=== PATIENT | male | born 2000 | race African-American/Black ===

== ENCOUNTER 2019-07-11 17:42 | Emergency (ER) | payer OTHER ==
[~2019-07-11] VITALS: Ht 188 cm; Wt 112.2 kg
[2019-07-11 17:42] VITALS: BP 138/79
[2019-07-11 18:44] LABS: HEMATOCRIT 42.3 % (42.0-52.0); HEMOGLOBIN 14.7 g/dl (13.5-17.5); MEAN CORPUSCULAR HEMOGLOBIN 31.8 pg (27.0-33.0); MEAN CORPUSCULAR HGB CONC 34.8 g/dl (32.0-36.5); MEAN CORPUSCULAR VOLUME 91.6 fl (80.0-96.0); PLATELET COUNT, AUTOMATED 276 10^3/uL (150-450); RED BLOOD COUNT 4.62 10^6/uL (4.30-6.10); WHITE BLOOD COUNT 5.6 10^3/uL (4.0-10.0)
[2019-07-11 19:10] LABS: AMPHETAMINES LEVEL URINE NEGATIVE (NEGATIVE); BARBITURATES URINE NEGATIVE (NEGATIVE); BENZODIAZEPINES URINE NEGATIVE (NEGATIVE); CANNABINOIDS URINE NEGATIVE (NEGATIVE); COCAINE METABOLITE URINE NEGATIVE (NEGATIVE); METHADONE URINE NEGATIVE (NEGATIVE); OPIATES URINE NEGATIVE (NEGATIVE); PHENCYCLIDINE URINE NEGATIVE (NEGATIVE)
[2019-07-11 19:34] LABS: ACETAMINOPHEN LEVEL < 2.0 UG/ML (10.0-30.0); ALBUMIN 4.6 GM/DL (3.2-5.2); ALT/SGPT 21 U/L (12-78); BILIRUBIN,DIRECT 0.2 MG/DL (0.0-0.2); BILIRUBIN,TOTAL 0.9 MG/DL (0.2-1.0); BLOOD UREA NITROGEN 12 MG/DL (7-18); CALCIUM LEVEL 9.3 MG/DL (8.5-10.1); CARBON DIOXIDE LEVEL 26 MEQ/L (21-32); CHLORIDE LEVEL 107 MEQ/L (98-107); CREATININE FOR GFR 1.18 MG/DL (0.70-1.30); ETHYL ALCOHOL (ETHANOL) < 0.003 % (0.000-0.010); GLOMERULAR FILTRATION RATE > 60.0 (>60); GLUCOSE, FASTING 94 MG/DL (70-100); POTASSIUM SERUM 3.8 MEQ/L (3.5-5.1); SALICYLATE LEVEL < 1.7 MG/DL (5.0-30.0); SODIUM LEVEL 140 MEQ/L (136-145); TOTAL PROTEIN 8.1 GM/DL (6.4-8.2)
== END 2019-07-11 21:02 | disposition home or self-care (01) ==
LOC: M ED 17:42
DX: Z60.9 Problem related to social environment, unspecified (principal)
CPT/HCPCS: 36415; 80048; 80076; 80307; 84443; 85027; 99284; G0480

== ENCOUNTER 2019-08-01 22:30 | Emergency (ER) | payer OTHER ==
[~2019-08-01] VITALS: Ht 185.4 cm; Wt 109.1 kg
[2019-08-01] MEDS ORDERED: HYDR-4571 PO (22:36)
[2019-08-02] MEDS ORDERED: PERCOCET 5MG/325MG TAB PO ONE
[2019-08-02] MEDS ORDERED: PERC5TAB12 PO (01:07)
[2019-08-02] MEDS ORDERED: OXYCODONE/APAP 5MG/325MG(BULK FOR ED) 1 TABLET PO ONE (01:15)
[2019-08-02 01:20] VITALS: BP 121/72
--- NOTE | 2019-08-02 08:19 | REP ---
Right wrist series: Four views. History: Known scaphoid fracture, question perilunate dislocation. No comparison radiographs. Findings: X-rays are taken through overlying nonopaque bandage. There is a transversely oriented nondisplaced fracture through the waist of the navicular bone. There is some associated soft-tissue swelling. There is no evidence of other carpal fracture, intercarpal dislocation, or subluxation. Distal radius and ulna appear to be intact. No metacarpal injury is seen. Impression: Nondisplaced navicular waist fracture. No evidence of more complex carpal injury. Electronically Signed by Mani Mosher MD 08/02/2019 09:38 A
[2019-08-10] MEDS ORDERED: TRAM50TA2 PO (13:23)
== END 2019-08-02 01:22 | disposition home or self-care (01) ==
LOC: M ED 22:30
DX: S52.501A Unspecified fracture of the lower end of right radius, initial encounter for closed fracture (principal); S62.001A Unspecified fracture of navicular [scaphoid] bone of right wrist, initial encounter for closed fracture; W10.8XXA Fall (on) (from) other stairs and steps, initial encounter; Y92.833 Campsite as the place of occurrence of the external cause

== ENCOUNTER 2019-08-12 10:56 | Day surgery (SDC) | payer OTHER ==
[~2019-08-12] VITALS: Ht 185.4 cm; Wt 110.1 kg
[~2019-08-12 10:56] MED LIST: HYDR-4571 PO; LR 1,000 ML IV ONE; PERC5TAB12 PO; TRAM50TA2 PO; ceFAZolin SOD 2 GM in IV 1 EA IV ONE
[2019-08-12] MEDS ORDERED: ROPIvacaine 0.5% 30 ML INJECTION (J2795 PER 1MG) ONE (10:57)
[2019-08-12] MEDS ORDERED: LIDOCAINE 1% MDV 20ML VIAL ONE (10:57)
[2019-08-12] MEDS ORDERED: BUPIVACAINE/EPIN 0.25% 30 ML VIAL As Ordered ONE (11:37)
[2019-08-12] MEDS ORDERED: dexameTHASONE 4 MG/ML 1ML VIAL (J1100) As Ordered ONE (14:52)
[2019-08-12] MEDS ORDERED: GLYCOPYRROLATE INJ 0.2 MG/ML 2 ML VIAL As Ordered ONE (14:52)
[2019-08-12] MEDS ORDERED: MIDAZOLAM INJ 2 MG/2 ML VIAL (J2250) As Ordered ONE (14:52)
[2019-08-12] MEDS ORDERED: LIDOCAINE 2% INJ 100 MG/5 ML SDV (FOR ANES.) As Ordered ONE (14:52)
[2019-08-12] MEDS ORDERED: PROPOFOL 200 MG/20 ML VIAL As Ordered ONE (14:52)
[2019-08-12] MEDS ORDERED: ONDANSETRON 4MG/2ML VIAL (J2405) As Ordered ONE ×2 (14:52→15:34)
[2019-08-12] MEDS ORDERED: fentaNYL 100 MCG/2 ML INJECTION (J3010) As Ordered ONE ×2 (14:52→15:34)
[2019-08-12] MEDS ORDERED: KETOROLAC 60 MG/2 ML VIAL (J1885) As Ordered ONE (14:52)
[2019-08-12] MEDS ORDERED: HYDROmorphone HCL 2 MG/ML 1ML VIAL (J1170) As Ordered ONE ×2 (15:19→15:37)
[2019-08-12] MEDS ORDERED: MORPHINE 10 MG/ML 1ML VIAL (J2270) As Ordered ONE (15:34)
[2019-08-12] MEDS ORDERED: PERCOCET 5MG/325MG TAB As Ordered ONE (15:34)
[2019-08-12] MEDS ORDERED: METOCLOPRAMIDE INJ 10MG/2ML VIAL (J2765) As Ordered ONE (15:34)
[2019-08-12] MEDS: MORPHINE 10 MG/ML 1ML VIAL (J2270) IV PRN ×3 (15:35→15:55)
--- NOTE | 2019-08-12 15:48 | REP ---
Right wrist series: 33 views. History: Wrist fracture. Intraoperative imaging. 95 seconds of fluoroscopy time is reported. Findings: A sequence of 33 last image hold fluoroscopically obtained spot radiographs of the left wrist document operative fixation of navicular waist fracture. Electronically Signed by Mani Mosher MD 08/12/2019 04:03 P
[2019-08-12] MEDS ORDERED: ACETAMINOPHEN TAB 650MG DOSE (2X325MG) PO PRN (16:15)
[2019-08-12] MEDS ORDERED: ONDANSETRON 4MG/2ML VIAL (J2405) IM PRN (16:15)
[2019-08-12] MEDS ORDERED: NS 1,000 ML IV SCH (16:15)
[2019-08-12] MEDS ORDERED: LR 1,000 ML IV SCH (16:15)
[2019-08-12] MEDS ORDERED: FLEET ENEMA PR PRN (16:15)
[2019-08-12] MEDS ORDERED: ONDANSETRON 4MG/2ML VIAL (J2405) IV PRN (16:15)
[2019-08-12] MEDS ORDERED: PERCOCET 5MG/325MG TAB PO PRN (16:15)
[2019-08-12] MEDS ORDERED: oxyCODONE 5MG TAB PO PRN (16:15)
[2019-08-12] MEDS ORDERED: fentaNYL 100 MCG/2 ML INJECTION (J3010) IV PRN (16:15)
[2019-08-12] MEDS ORDERED: METOCLOPRAMIDE INJ 10MG/2ML VIAL (J2765) IV PRN (16:15)
--- NOTE | 2019-08-12 16:25 | RO ---
DATE OF PROCEDURE: 08/12/2019 PREOPERATIVE DIAGNOSIS: Right scaphoid fracture and distal radius fracture. POSTOPERATIVE DIAGNOSIS: Right scaphoid fracture and distal radius fracture. PROCEDURE: Open reduction, internal fixation of right scaphoid and open reduction internal fixation of right distal radius fracture, articular. SURGEON: Richardson Davis MD [employer]: TORI Leos who was essential for reduction during instrumental portions of the procedure. ANESTHESIA: General. TOURNIQUET TIME: 47 minutes. ANTIBIOTICS: 2 grams of Ancef. ESTIMATED BLOOD LOSS: Minimal. COMPLICATIONS: None. INDICATION: This is a pleasant 19-year-old male who suffered a right distal radius and scaphoid fracture. I discussed with the patient that the increased change of healing with putting internal fixation across the scaphoid which is a notoriously difficult bone to heal and while we are there we pin his distal radius to prevent any sort of displacement. The patient expressed understanding and agreed with this plan. All risks and benefits including, but not limited to infection, malunon, nonunion and damage to surrounding structures were discussed. DESCRIPTION OF PROCEDURE: Patient was taken back to the OR, supine on the operating table and underwent general anesthesia, at which point a time-out was taken confirming site, side and surgery. We injected 20 mL of 0.25% Marcaine with epinephrine overlying the incision on the dorsal aspect of the wrist. Once this was done we prepped and draped the hand in the usual fashion. We then had a second time-out confirming site, side and surgery. Once agreed, we made a longitudinal incision over the dorsum of the wrist overlying Raf's tubercle. We then sharply dissected through subcutaneous tissue, careful to identify any sensory nerve branches. We then identified extensor pollicis longus (EPL) and released it from its sheath and used that area of undermine under the extensor compartment, careful to separate it from the wrist capsule. We then did a T-capsulotomy over the scaphoid careful to leave a cuff on the distal radius. At which point, we identified the scaphoid and found the fracture. We were able to see the dorsal cortex of the fracture which was adequately reduced. We then used a 0.45 mm K-wire to pin the scaphoid along the dorsal cortex. We confirmed this on mini C-Arm in AP and lateral and scaphoid views. We were happy with the placement of this and we overdrilled the near cortex, careful not to extend through to the contralateral side. Prior to this we had measured a 30. We took of 6 mm and used a 24 mm Acumed mini screw. Once we did that, then after drilling the path of the fracture we used the cortical drill over the head of the screw. We then entered the screw making sure it was buried on the near cortex and was not protruding distally on x-ray. We were very happy with the placement of the screw. On our final films we did notice that there was a volar gapping of the fracture, however, looking at dorsal aspect it was compressed at that point. Decision made was to progress on with the procedure to pin the distal radius. At that point we used a 1.65 mm K-wire went through the radial styloid to the ulnar aspect of the radial shaft. We then cut and bent that wire, confirmed on AP and lateral with the mini C-Arm at which point we were happy with the reduction of the scaphoid and the fixation of the distal radius. We irrigated the wound thoroughly, closed the wrist capsule with #4-0 FiberWire, used #3-0 Vicryl to suture back into place the fourth compartment leaving EPL free in the subcutaneous tissue. We then closed subcutaneous tissues with #3-0 Vicryl and #3-0 Monocryl with Mastisol and Steri-Strips to the skin. We then splinted the patient with gauze, Webril and plaster and Willy. Tourniquet was let down at approximately 47 minutes. Patient was extubated and taken to PACU in stable condition. The patient is having pain in PACU so anesthesia was considering placing a posterior peripheral nerve block. He will be kept overnight as he has severe sleep apnea for monitoring and hopefully discharged early next morning. POSTOPERATIVE PLAN: Patient will be nonweightbearing with right upper extremity. We will see him back in 2 weeks for a clinical recheck, at which point we will place him into a thumb spica cast. He will be in that cast for an additional 6 weeks, so at 8 weeks postop we will see him back, release him from the cast and get a CT scan at that time to evaluate healing. If there appears to be a large fracture gap, we may consider coming back for bone grafting procedure while leaving the screw in place. If it is well healed, we will likely release him to full activity at that point. Will convert him at least over to a thumb spica splint and then consider releasing him a month afterwards.
[2019-08-12 17:30] VITALS: BP 136/80
[2019-08-12 18:00] VITALS: BP 134/80
[2019-08-12 18:30] VITALS: BP 130/81
[2019-08-12 19:30] VITALS: BP 131/80
[2019-08-12 20:30] VITALS: BP 138/79
[2019-08-12] MEDS: ceFAZolin SOD 1 GM in D5W MINI-BAG PLUS 50 ML IV SCH (22:29)
[2019-08-13 02:03] VITALS: BP 119/54
[2019-08-13] MEDS: oxyCODONE 5MG TAB PO PRN ×2 (05:05→10:20)
[2019-08-13] MEDS: ceFAZolin SOD 1 GM in D5W MINI-BAG PLUS 50 ML IV SCH (06:14)
[2019-08-13 06:16] VITALS: BP 126/70
[2019-08-13] MEDS: MORPHINE 4 MG/ML 1ML VIAL/SYRINGE (J2270) IV PRN ×2 (06:20→11:03)
[2019-08-13] MEDS ORDERED: MORPHINE 15 MG SA TAB PO ONE (13:00)
== END 2019-08-13 12:33 | disposition home or self-care (01) ==
LOC: M SDC 10:56 → M MS5PR 17:30 → M SDC 08-13 12:33
PROVIDERS: ATTEND Orthopaedic Surgery Hand Surgery
DX: S62.001A Unspecified fracture of navicular [scaphoid] bone of right wrist, initial encounter for closed fracture (principal); S52.501A Unspecified fracture of the lower end of right radius, initial encounter for closed fracture; S60.511A Abrasion of right hand, initial encounter; R06.83 Snoring; G47.33 Obstructive sleep apnea (adult) (pediatric); W19.XXXA Unspecified fall, initial encounter; Y93.9 Activity, unspecified; Y92.9 Unspecified place or not applicable; Y99.9 Unspecified external cause status
CPT/HCPCS: 25607; 25628; 76000; 96360; 96374; 96375; 96376; C1713; J0690; J1100; J1170; J1885; J2250; J2270; J2405; J2795

== ENCOUNTER → 2019-10-12 | Outpatient (CLI) | payer OTHER ==
[~2019-10-12] MED LIST changes: -LR 1,000 ML IV ONE; -ceFAZolin SOD 2 GM in IV 1 EA IV ONE
--- NOTE | 2019-10-12 12:17 | REP ---
CT RIGHT WRIST WITHOUT CONTRAST: HISTORY: Displaced fracture middle third navicular bone right wrist. Comparison right wrist radiographs August 02, 2019. August 12, 2019 radiographs document operative therapy for the navicular fracture. TECHNIQUE: Helical scanning is acquired. 2 mm axial images are generated. Coronal and sagittal MPR images are generated and reviewed. Study is acquired through overlying cast material. FINDINGS: There is a metallic screw placed longitudinally across the navicular waist fracture. This metallic screw protrudes 2-3 mm from the cortical surface of the proximal pole of the navicular bone. It extends into the navicular lunate articulation at this level. The distal end of the screw appears subcortical. There is subtle pattern of increased relative density in the proximal pole of the navicula. The fracture is well aligned and the fracture lucency is only visible at the palmar cortex level of the navicular waist. Otherwise, it appears to be united. There is a pin tract through the distal radius obliquely from radial styloid to distal metaphysis. No other carpal fracture is seen. No malalignment. IMPRESSION: Status post pinning for navicular waist fracture. The metallic screw in the navicula protrudes into the navicular lunate articulation 2-3 mm. There is some relative hyperdensity in the proximal pole of the navicular bone but the fracture appears to be healed with the possible exception of the palmar cortical margin. Electronically Signed by Mani Mosher MD 10/12/2019 05:39 P
== END ==
LOC: M RAD 11:19
PROVIDERS: ATTEND Orthopaedic Surgery Hand Surgery
DX: S62.021D Displaced fracture of middle third of navicular [scaphoid] bone of right wrist, subsequent encounter for fracture with routine healing (principal); W18.30XD Fall on same level, unspecified, subsequent encounter; Y92.009 Unspecified place in unspecified non-institutional (private) residence as the place of occurrence of the external cause

== ENCOUNTER 2021-03-04 10:08 | Emergency (ER) | payer OTHER ==
[~2021-03-04] VITALS: Ht 185.4 cm; Wt 131.8 kg
--- NOTE | 2021-03-04 10:55 | REP ---
INDICATION: CHEST PAIN COMPARISON: None. TECHNIQUE: Portable AP view of the chest FINDINGS: The mediastinum and cardiac silhouette are within normal limits for portable technique. The lung bonds are clear without acute consolidation, effusion, or pneumothorax. Skeletal structures are intact. IMPRESSION: No acute cardiopulmonary process appreciated. <Electronically signed by Dave Mcneill > 03/04/21 [id number]
[2021-03-04] MEDS ORDERED: LORazepam 2 MG/ML VIAL IV STA (11:00)
[2021-03-04 11:31] LABS: BASO % 0.5 % (0.0-1.0); EOS % 0.7 % (0.0-3.0); HEMATOCRIT 43.6 % (42.0-52.0); HEMOGLOBIN 14.9 g/dl (13.5-17.5); LYMPH # 1.1 10^3/uL (1.5-5.0); LYMPH % 25.3 % (24.0-44.0); MEAN CORPUSCULAR HEMOGLOBIN 30.8 pg (27.0-33.0); MEAN CORPUSCULAR HGB CONC 34.2 g/dl (32.0-36.5); MEAN CORPUSCULAR VOLUME 90.1 fl (80.0-96.0); MONO # 0.2 10^3/uL (0.0-0.8); MONO % 5.2 % (2.0-8.0); NEUTROPHILS % 68.1 % (36.0-66.0); PLATELET COUNT, AUTOMATED 298 10^3/uL (150-450); RED BLOOD COUNT 4.84 10^6/uL (4.30-6.10); WHITE BLOOD COUNT 4.4 10^3/uL (4.0-10.0)
[2021-03-04] MEDS ORDERED: ISOVUE-370 76% 100ML VIAL As Ordered ONE (12:08)
[2021-03-04 12:16] LABS: AMPHETAMINES LEVEL URINE NEGATIVE (NEGATIVE); BARBITURATES URINE NEGATIVE (NEGATIVE); BENZODIAZEPINES URINE NEGATIVE (NEGATIVE); CANNABINOIDS URINE NEGATIVE (NEGATIVE); COCAINE METABOLITE URINE NEGATIVE (NEGATIVE); METHADONE URINE NEGATIVE (NEGATIVE); OPIATES URINE NEGATIVE (NEGATIVE); PHENCYCLIDINE URINE NEGATIVE (NEGATIVE)
[2021-03-04 12:18] LABS: ACETAMINOPHEN LEVEL < 2.0 UG/ML (10.0-30.0); ALT/SGPT 33 U/L (12-78); BILIRUBIN,DIRECT 0.3 MG/DL (0.0-0.2); BILIRUBIN,TOTAL 1.3 MG/DL (0.2-1.0); ETHYL ALCOHOL (ETHANOL) < 0.003 % (0.000-0.010); FREE T4 1.09 NG/DL (0.76-1.46); LIPASE 108 U/L (73-393); NT-PRO BNP 7 PG/ML (<125); SALICYLATE LEVEL < 1.7 MG/DL (5.0-30.0); THYROID STIMULATING HORMONE 0.828 uIU/ML (0.358-3.740); TOTAL PROTEIN 8.2 GM/DL (6.4-8.2)
--- NOTE | 2021-03-04 12:38 | REP ---
INDICATION: chest pain. COMPARISON: None. TECHNIQUE: CT angiogram chest performed following the intravenous administration of 100 cc of Isovue 370. Sagittal and coronal reconstruction images are performed. FINDINGS: Lungs: Clear, no infiltrate or nodule. Mediastinum: No adenopathy. Pulmonary arteries: No evidence of pulmonary embolism. Lily: No adenopathy. Axilla: No adenopathy. Pleura: No effusion. Heart: Not enlarged. Thoracic aorta: No aneurysm or dissection. Upper abdominal structures: Unremarkable. Visualized osseous structures: Unremarkable. IMPRESSION: No CT evidence of pulmonary embolism. No infiltrate seen. <Electronically signed by Ozzy Hinojosa > 03/04/21 [id number]
[2021-03-04 13:16] VITALS: BP 144/81
--- NOTE | 2021-03-04 19:37 | ECGEPIP ---
[facility] - ED Test Date: 2021-03-04 Pat Name: DB NEUMANN Department: Room: - Gender: Male Merchandising Intern: PETER : 2000 Requested By: Corine Vinson Order Number: [id number] Reading MD: Corine Vinson Measurements Intervals [place] Rate: 73 P: 26 MN: 166 QRS: 49 QRSD: 106 T: 18 QT: 376 QTc: 414 Interpretive Statements Sinus rhythm with marked sinus arrhythmia Nonspecific ST T wave changes No prior ECG for comparison Electronically Signed on 03-04-2021 19:37:16 EDT by Corine Vinson
== END 2021-03-04 13:24 | disposition home or self-care (01) ==
LOC: M ED 10:08
DX: F41.0 Panic disorder [episodic paroxysmal anxiety] (principal); G43.909 Migraine, unspecified, not intractable, without status migrainosus; G47.30 Sleep apnea, unspecified; F17.210 Nicotine dependence, cigarettes, uncomplicated
CPT/HCPCS: 71045; 71275; 80047; 80076; 80143; 80307; 82077; 83690; 83880; 84439; 84443; 84484; 85025; 93005; 93041; 94760; 96374; 99284; J2060; Q9967